=== PATIENT | female | born 1935 | race Caucasian/White ===

== ENCOUNTER 2017-03-11 20:11 | Inpatient (IN) | payer OTHER, MEDICARE ==
[~2017-03-11] VITALS: Ht 165.1 cm; Wt 84.8 kg
[~2017-03-11 20:11] MED LIST: CARV6.25 PO; DIVA250T4 PO; DOCU100C68 PO; FERR325T32 PO; FURO-145 PO; LACT10SO69 PO; METF500T PO; OLAN2.5T3 PO; OMEP20CA4 PO; TRAZ-144 PO
--- NOTE | 2017-03-11 20:30 | NUR ---
PT BIB PA, FROM [facility] FOR WEAKNESS AND ABLABS/UTI, ALERT, FOLOWS COMMANDS, RESPIRATION EVEN, UNLABORED, NO SOB, NO CHEST PAIN, ABLE TO MOVE EXTREMETIES, NNVD, NAD, PT IS NOT DIAPHORETIC, PT PLACED ON MONITOR, WAITING FOR MD SARAN
--- NOTE | 2017-03-11 20:40 | NUR ---
DR WALSH AT THE BEDSIDE FOR EVAL
--- NOTE | 2017-03-11 20:45 | NUR ---
PT TO CT.
--- NOTE | 2017-03-11 20:45 | NUR ---
XRAY AT BEDSIDE
--- NOTE | 2017-03-11 20:59 | NUR ---
PT RETURNED FROM CT
[2017-03-11 21:11] LABS: BASOPHILS # (AUTO) 0.1 /CMM (0.0-0.2); BASOPHILS % (AUTO) 1.4 % (0.0-2.0); EOSINOPHILS # (AUTO) 0.2 /CMM (0.0-0.7); HEMATOCRIT 35 % (33-45); HEMOGLOBIN 11.8 g/dL (11.5-14.8); LYMPHOCYTES # (AUTO) 1.6 /CMM (0.8-4.8); LYMPHOCYTES % (AUTO) 20.8 % (20.0-44.0); MEAN CORPUSCULAR HEMOGLOBIN 33 PG (26.0-33.0); MEAN CORPUSCULAR HGB CONC 34 g/dl (31.0-36.0); MEAN CORPUSCULAR VOLUME 99 fL (82-100); MONOCYTES # (AUTO) 0.7 /CMM (0.1-1.30); MONOCYTES % (AUTO) 9.2 % (2.0-12.0); NEUTROPHILS % (AUTO) 66.6 % (43.0-81.0); PLATELET COUNT (AUTO) 169 /CMM (150-450); RDW COEFFICIENT OF VARIATION 12.2 (11.5-15.0); RED BLOOD CELL COUNT(AUTO) 3.53 MIL/uL (4.0-5.2); WHITE BLOOD COUNT (AUTO) 7.6 K/uL (4.3-11.0)
[2017-03-11 21:29] LABS: CALCIUM, SERUM 8.6 mg/dL (8.5-10.1); CARBON DIOXIDE 27 mmol/L (21-32); CHLORIDE 95 mmol/L (98-107); CREATININE 0.8 mg/dL (0.6-1.3); GLUCOSE 143 mg/dL (74-106); POTASSIUM 3.6 mmol/L (3.5-5.1); SODIUM SERUM 128 mmol/L (136-145); UREA NITROGEN, BLOOD 7 mg/dL (7-18)
[2017-03-11 21:30] LABS: PROTHROMBIN TIME 85.9 SECS (9.5-12.7)
--- NOTE | 2017-03-11 21:34 | NUR ---
Straight catheter performed aseptically for urine collection, drained about 900cc orange urine, collected and sent to lab.
[2017-03-11 21:35] LABS: ALANINE AMINOTRANSFERASE 29 U/L (12-78); ALBUMIN 3.1 g/dL (3.4-5.0); ALKALINE PHOSPHATASE 222 U/L (46-116); ASPARTATE AMINOTRANSFERASE 26 U/L (15-37); BILIRUBIN,DIRECT 0.2 mg/dL (0.0-0.2); BILIRUBIN,TOTAL 0.6 mg/dL (0.2-1.0); TOTAL PROTEIN, SERUM 7.1 g/dL (6.4-8.2)
[2017-03-11 21:37] LABS: INR 7.43 (0.87-1.13); TROPONIN I < 0.017 ng/mL (0.00-0.056)
[2017-03-11 21:40] LABS: APPEARANCE,URINE Clear (CLEAR); BILIRUBIN,URINE Negative (NEGATIVE); BLOOD, URINE Negative Ery/uL (NEGATIVE); COLOR,URINE Yellow (YELLOW); KETONES,URINE Negative (NEGATIVE); LEUKOCYTE ESTERASE ,URINE Negative (NEGATIVE); NITRITE, URINE Negative (NEGATIVE); PH,URINE 5.5 (5.0-8.0); PROTEIN,URINE Negative (NEGATIVE); UGLUCOSE Negative (NEGATIVE); UROBILINOGEN,URINE 0.2 EU/dL (0.2)
--- NOTE | 2017-03-11 21:47 | NUR ---
DR. WALSH SPOKE TO DR. SKY REGARDING POC/ ADMISSION
[2017-03-11] MEDS ORDERED: PHYTONADIONE 5 MG TABLET PO ONE (22:00)
[2017-03-11] MEDS ORDERED: PHYTONADIONE 5 MG TABLET ONE (22:19)
[2017-03-11] MEDS ORDERED: Z GUARD REMEDY 2 OZ OINT TP PRN (22:30)
[2017-03-11] MEDS ORDERED: CARVEDILOL 6.25 MG TABLET PO SCH (22:30)
[2017-03-11] MEDS ORDERED: ONDANSETRON HCL/PF 4 MG/2 ML VIAL IVP PRN (22:30)
[2017-03-11] MEDS ORDERED: HYDROCODONE/APAP 5/325MG 1 EACH TABLET PO PRN (22:30)
[2017-03-11] MEDS ORDERED: OMEPRAZOLE 20 MG PO SCH (22:30)
[2017-03-11] MEDS ORDERED: MAGNESIUM HYDROXIDE 30 ML UDC PO PRN (22:30)
[2017-03-11] MEDS ORDERED: ZOLPIDEM TARTRATE 5 MG TABLET PO PRN (22:30)
[2017-03-11] MEDS ORDERED: ACETAMINOPHEN 325 MG TABLET PO PRN (22:30)
[2017-03-11] MEDS ORDERED: MAG HYDROX/AL HYDROX/SIMETH 30 ML UDC PO PRN (22:30)
--- NOTE | 2017-03-11 22:49 | NUR ---
REPORT GIVEN TO LOYDA FOR TELE BED 313
[2017-03-11 23:05] VITALS: BP 114/60
[2017-03-11] MEDS ORDERED: CARVEDILOL 6.25 MG TABLET ONE (23:08)
[2017-03-11] MEDS ORDERED: DIVALPROEX SODIUM 250 MG TABLET.DR PO ONE (23:09)
[2017-03-11 23:10] LABS: OSMOLALITY,SERUM 264 mOS/kg (278-305); OSMOLALITY,URINE 335 mOS/kg (340-1090)
[2017-03-11] MEDS: DIVALPROEX SODIUM 250 MG TABLET.DR PO SCH (23:10)
--- NOTE | 2017-03-11 23:11 | NUR ---
PT TRANSFERRED PER ACLS PROTOCOL TO 313
--- NOTE | 2017-03-11 23:15 | NUR ---
AUDIO VISUAL ENGINEER NOTE RECEIVED PATIENT FROM ER VIA R[place]AU, PATIENT IS ALERT AND ORIENTEDX3, ON BED REST, BUENO CATH NOTED DUE TO URINARY RETENTION, SHANTANU CLEAR URINE NOTED, EDEMA +2 ON BLE WELL. IV ON RIGHT AC IS PATENT AND INTACT, WILL CONNECT THE FLUID. PATIENT DENIES SOB OR PAIN AT THIS TIME. PT HAS GENERALIZED BRUISES AND RASH ON GROIN, PERINEAL AREA AND BUTTOCKS, PICTURES TAKEN AND PUT THEM IN A CHART. TELE SR 64. SRX2, BED IN LOW POSITION, CALL LIGHT WITHIN REACH, WILL CONTINUE TO MONITOR PATIENT.
[2017-03-11] MEDS: IV NS 0.9% 1,000 ML IV PRN (23:16)
--- NOTE | 2017-03-11 23:50 | NUR ---
SENIOR COMPLIANCE ANALYST NOTE ECHOCARDIOGRAM PERFORMED AT BEDSIDE. EF >55
[2017-03-12 04:00] VITALS: BP 124/60
--- NOTE | 2017-03-12 06:46 | NUR ---
FOREIGN LANGUAGES DEPARTMENT CHAIR NOTE PATIENT IS RESTING IN BED COMFORTABLY, NO ACUTE DISTRESS NOTED SINCE ADMISSION. NO S/S OF RESPIRATORY DISTRESS OR PAIN AT THIS TIME. IV ON RIGHT AC IS PATENT AND INTACT, FLUID IS RUNNING. WILL ENDORSE TO DAY SHIFT NURSE FOR CADEN. Addendum: 03/12/17 at 0654 by MARY DE OLIVEIRA RN TELE MONITOR SR WITH PVC 62.
[2017-03-12 07:16] LABS: EOSINOPHILS # (AUTO) 0.2 /CMM (0.0-0.7); EOSINOPHILS % (AUTO) 3.2 % (0.0-6.0); HEMATOCRIT 32 % (33-45); HEMOGLOBIN 11.1 g/dL (11.5-14.8); LYMPHOCYTES # (AUTO) 1.5 /CMM (0.8-4.8); MEAN CORPUSCULAR HEMOGLOBIN 34 PG (26.0-33.0); MEAN CORPUSCULAR HGB CONC 35 g/dl (31.0-36.0); MEAN CORPUSCULAR VOLUME 99 fL (82-100); MONOCYTES # (AUTO) 0.5 /CMM (0.1-1.30); MONOCYTES % (AUTO) 9.8 % (2.0-12.0); NEUTROPHILS # (AUTO) 3.3 /CMM (1.8-8.9); PLATELET COUNT (AUTO) 140 /CMM (150-450); RDW COEFFICIENT OF VARIATION 12.8 (11.5-15.0); RED BLOOD CELL COUNT(AUTO) 3.24 MIL/uL (4.0-5.2); WHITE BLOOD COUNT (AUTO) 5.6 K/uL (4.3-11.0)
[2017-03-12 07:35] LABS: CHOLESTEROL 87 mg/dL (<200); HDL CHOLESTEROL 50 mg/dL (40-60); LDL 29 mg/dL (0-99); THYROID STIMULATING HORMONE 1.176 uIU/mL (0.358-3.74); TRIGLYCERIDES 51 mg/dL (30-150)
--- NOTE | 2017-03-12 07:46 | NUR ---
RN NOTES RECEIVED PT. PT IS STABLE AND AWAKE IN BED. A/O X3. NO S/S OF DISTRESS OR SOB. NO C/O PAIN. PT IS ON TELE MONITOR READING SR WITH PVC AT 62BPM. PT HAS A FC, NO CURRENT OUTPUT. IV ACCESS LOCATED ON RIGHT AC 20G RUNNING NS AT 75 ML/HR. WILL CONTINUE TO MONITOR.
[2017-03-12 07:50] LABS: CALCIUM, SERUM 8.1 mg/dL (8.5-10.1); CARBON DIOXIDE 32 mmol/L (21-32); CHLORIDE 97 mmol/L (98-107); CREATININE 0.6 mg/dL (0.6-1.3); GLUCOSE 108 mg/dL (74-106); MAGNESIUM 1.7 mg/dL (1.8-2.4); PHOSPHORUS 3.2 mg/dL (2.5-4.9); POTASSIUM 3.8 mmol/L (3.5-5.1); SODIUM SERUM 133 mmol/L (136-145); UREA NITROGEN, BLOOD 4 mg/dL (7-18)
[2017-03-12 07:51] LABS: PROTHROMBIN TIME 80.9 SECS (9.5-12.7)
[2017-03-12 07:56] LABS: INR 6.7 (0.87-1.13)
[2017-03-12 08:00] VITALS: BP 129/62
--- NOTE | 2017-03-12 08:15 | NUR ---
RN NOTES CALLED BY LAB REGARDING PT'S INR OF 6.7. INFORMED IDALIA MCKAY NP OF PT'S INR LEVEL.
[2017-03-12] MEDS: METFORMIN 500 MG TABLET PO SCH ×2 (08:31→17:36)
[2017-03-12] MEDS: PANTOPRAZOLE 40 MG TABLET.DR PO SCH (08:31)
[2017-03-12] MEDS: DOCUSATE SODIUM 100 MG CAPSULE PO SCH ×2 (08:31→17:36)
[2017-03-12] MEDS: DIVALPROEX SODIUM 250 MG TABLET.DR PO SCH ×2 (08:31→17:36)
[2017-03-12] MEDS: FERROUS SULFATE (325 MG) 325 MG/TAB TABLET PO SCH ×3 (08:31→17:36)
[2017-03-12] MEDS: CARVEDILOL 6.25 MG TABLET PO SCH (09:00)
[2017-03-12] MEDS: Magnesium 1GM/D5W 100ML PREMIX 100 ML IV SCH ×2 (10:47→12:33)
[2017-03-12 10:49] LABS: CALCIUM, SERUM 7.6 mg/dL (8.5-10.1); CARBON DIOXIDE 29 mmol/L (21-32); CHLORIDE 100 mmol/L (98-107); CREATININE 0.5 mg/dL (0.6-1.3); GLUCOSE 141 mg/dL (74-106); POTASSIUM 4.3 mmol/L (3.5-5.1); SODIUM SERUM 135 mmol/L (136-145); UREA NITROGEN, BLOOD 5 mg/dL (7-18)
--- NOTE | 2017-03-12 13:23 | NUR ---
RN NOTES AM BLOOD PRESSURE MEDICATION HELD. COREG PO QD, MEDICATION SCHEDULE CHANGED. WAS LAST GIVEN AT 2314 ON 03/11. RESCHEDULED FOR 0900 BEGINNING 03/12. MORNING BP WAS 129/62 HR 65. RETAKEN AT 1230 WITH BP AT 121/52 AND HR 66. MEDICATION HELD.
[2017-03-12 16:15] VITALS: BP 144/86
--- NOTE | 2017-03-12 18:35 | NUR ---
RN CLOSING NOTES PT IS AWAKE AND RESTING IN BED. A/O X 2, NO S/S OF DISTRESS OR SOB. NO C/O PAIN. PT HAS BEEN D/C TELE. FC COLLECTED 1700 ML OF FLUID THROUGHOUT THE DAY. PT RECEIVED 2G IV MAG REPLACEMENT. IV ACCESS LOCATED ON RIGHT AC, 20G RUNNING NS AT 75 ML/HR. PRIMARY NOTIFIED OF ELEVATED BP, INSTRUCTED TO CONTINUE COREG ON REGULAR SCHEDULE. CONTACT PROVIDER IF SBP > 160. SAFETY MEASURES IN PLACE, CALL LIGHT WITHIN REACH. WILL ENDORSE TO OIL PAINTER FOR CADEN.
--- NOTE | 2017-03-12 19:30 | NUR ---
MS RN NOTE RECEIVED PATIENT FROM DAY SHIFT, PATIENT IS ALERT AND ORIENTEDX2, NO S/S OF RESPIRATORY DISTRESS OR PAIN AT THIS TIME. IV ON RIGHT AC IS PATENT AND INTACT, FLUID IS RUNNING. INR LEVEL IS TRENDING DOWN LITTLE BIT, WILL CONTINUE TO MONITOR HER LAB VALUE. SRX2, BED IN LOW POSITION, CALL LIGHT WITHIN REACH, WILL CONTINUE TO MONITOR PATIENT.
[2017-03-12 20:00] VITALS: BP 126/65
[2017-03-12] MEDS: OLANZAPINE 2.5 MG TABLET PO SCH (21:19)
[2017-03-12] MEDS: TRAZODONE 50 MG TABLET PO SCH (21:19)
[2017-03-12] MEDS: IV NS 0.9% 1,000 ML IV PRN (21:23)
--- NOTE | 2017-03-13 06:46 | NUR ---
MS RN NOTE PATIENT IS RESTING IN BED COMFORTABLY, NO ACUTE DISTRESS NOTED THROUGHOUT THE SHIFT. IV ON RIGHT AC IS PATENT AND INTACT, FLUID IS RUNNING. WILL ENDORSE TO DAY SHIFT NURSE FOR CADEN.
--- NOTE | 2017-03-13 07:33 | NUR ---
RN NOTES RECEIVED PT. PT IS STABLE AND SLEEPING IN BED. NO S/S OF DISTRESS OR SOB. PT IS ON ROOM AIR. PT IS ON A FC, WITH 100 ML AT BEGINNING OF SHIFT. IV ACCESS IS LOCATED IN RIGHT AC, 20G RUNNING NS AT 75 ML/HR. WILL FOLLOW UP WITH COAGULATION LAB RESULTS. SAFETY MEASURES IN PLACE, CALL LIGHT WITHIN REACH. WILL CONTINUE TO MONITOR.
[2017-03-13 08:00] VITALS: BP 148/60
[2017-03-13 08:07] LABS: BASOPHILS % (AUTO) 0.2 % (0.0-2.0); EOSINOPHILS # (AUTO) 0.1 /CMM (0.0-0.7); EOSINOPHILS % (AUTO) 0.8 % (0.0-6.0); HEMATOCRIT 32 % (33-45); HEMOGLOBIN 11.1 g/dL (11.5-14.8); LYMPHOCYTES # (AUTO) 1.1 /CMM (0.8-4.8); LYMPHOCYTES % (AUTO) 13.2 % (20.0-44.0); MEAN CORPUSCULAR HEMOGLOBIN 34 PG (26.0-33.0); MEAN CORPUSCULAR HGB CONC 35 g/dl (31.0-36.0); MEAN CORPUSCULAR VOLUME 99 fL (82-100); MONOCYTES # (AUTO) 0.7 /CMM (0.1-1.30); MONOCYTES % (AUTO) 7.8 % (2.0-12.0); NEUTROPHILS # (AUTO) 6.5 /CMM (1.8-8.9); PLATELET COUNT (AUTO) 135 /CMM (150-450); RDW COEFFICIENT OF VARIATION 13.1 (11.5-15.0); RED BLOOD CELL COUNT(AUTO) 3.26 MIL/uL (4.0-5.2); WHITE BLOOD COUNT (AUTO) 8.3 K/uL (4.3-11.0)
[2017-03-13] MEDS: DIVALPROEX SODIUM 250 MG TABLET.DR PO SCH ×2 (08:22→17:45)
[2017-03-13] MEDS: PANTOPRAZOLE 40 MG TABLET.DR PO SCH (08:22)
[2017-03-13] MEDS: FERROUS SULFATE (325 MG) 325 MG/TAB TABLET PO SCH ×3 (08:22→17:45)
[2017-03-13] MEDS: METFORMIN 500 MG TABLET PO SCH ×2 (08:22→17:45)
[2017-03-13] MEDS: DOCUSATE SODIUM 100 MG CAPSULE PO SCH ×2 (08:22→17:45)
[2017-03-13] MEDS: CARVEDILOL 6.25 MG TABLET PO SCH (08:23)
[2017-03-13 08:42] LABS: CARBON DIOXIDE 32 mmol/L (21-32); CHLORIDE 103 mmol/L (98-107); CREATININE 0.5 mg/dL (0.6-1.3); GLUCOSE 116 mg/dL (74-106); MAGNESIUM 1.8 mg/dL (1.8-2.4); POTASSIUM 4.1 mmol/L (3.5-5.1); SODIUM SERUM 140 mmol/L (136-145); UREA NITROGEN, BLOOD 4 mg/dL (7-18)
--- NOTE | 2017-03-13 12:33 | NUR ---
RN NOTES BUENO CATH D/C. ORDERS TO MONITOR PATIENT FOR URINE RETENTION FOR 6 HOURS. BLADDER SCAN BY 1800 IF NO URINE OUTPUT. STRAIGHT CATH FOR VOLUME EXCESS OVER 300 ML. WILL CONTINUE TO MONITOR.
[2017-03-13 13:14] LABS: PROTHROMBIN TIME 49.6 SECS (9.5-12.7)
[2017-03-13 13:16] LABS: INR 4.23 (0.87-1.13)
[2017-03-13 16:00] VITALS: BP 123/58
--- NOTE | 2017-03-13 18:11 | NUR ---
RN NOTES PERFORMED BLADDER SCAN, 200 ML OF URINE VISUALIZED IN SCAN. PER MD ORDER, IF BLADDER SCAN FIND GREATER THAN 300 ML OF URINE, PERFORM STRAIGHT CATH ON PT. WILL ENDORSE TO MAINFRAME SOFTWARE DEVELOPER.
--- NOTE | 2017-03-13 18:29 | NUR ---
RN CLOSING NOTE PT IS AWAKE AND IN BED. NO S/S OF DISTRESS OR PAIN. BUENO D/C AT 1200. BLADDER SCAN PERFORMED PER MD ORDER. VOLUME OF 180-200 FOUND. MD ORDER IS TO PERFORM STRAIGHT CATH IF PT DOES NOT VOID AND HAS A VOLUME EQUAL OR GREATER TO 300 ML DURING BLADDER SCAN. ALL PATIENT NEEDS ANTICIPATED AND MET. SAFETY MEASURES IN PLACE. WILL ENDORSE TO PIANO STRINGER FOR CADEN.
--- NOTE | 2017-03-13 19:40 | NUR ---
MS RN NOTE: PATIENT RESTING IN BED, NO ACUTE DISTRESS NOTED. BREATHING EVEN AND UNLABORED, NO SOB NOTED. IV TO RAC IN PLACE. BED LOCKED AND IN LOWEST POSITION, CALL LIGHT IN REACH, WILL CONTINUE TO MONITOR.
[2017-03-13 20:00] VITALS: BP 127/57
[2017-03-13] MEDS: OLANZAPINE 2.5 MG TABLET PO SCH (22:05)
[2017-03-13] MEDS: TRAZODONE 50 MG TABLET PO SCH (22:05)
--- NOTE | 2017-03-14 02:30 | NUR ---
MS RN NOTE: PATIENT SLEEPING IN BED, NO ACUTE DISTRESS NOTED. REPORT GIVEN PT VONNIE FOR CONTINUATION OF CARE.
--- NOTE | 2017-03-14 02:30 | NUR ---
MS RN NOTES RECEIVED REPORT FROM MALKA JAY,PATIENT SOUND ASLEEP AT THIS TIME.WILL CONTINUE TO MONITOR STATUS.
--- NOTE | 2017-03-14 05:45 | NUR ---
MS RN NOTES REPORTED BY AMOL ZUNIGA,PATIENT NO PEE SINCE THE BEGINNING OF THE SHIFT.PATIENT BLADDER SLIGHTLY DISTENDED.BLADDER SCAN SHOWS 754 VOLUME OF URINE IN THE BLADDER. BUENO CATH RE INSERTED AND TAKEN OUT 700ML RIGHT AWAY,AND STILL DRAINING.WILL CONTINUE TO MONITOR OUTPUT.
--- NOTE | 2017-03-14 06:50 | NUR ---
MS RN NOTES EMPTIED BUENO 750ML
--- NOTE | 2017-03-14 06:50 | NUR ---
MS RN NOTES SLEPT WITH INTERVAL,NO PAIN DISCOMFORTS NOTED.REPOSITION PER PROTOCOL,CALL LIGHT IN REACH,NEEDS ATTENDED.WILL ENDORSE TO DAY NURSE FOR CADEN.
--- NOTE | 2017-03-14 07:28 | NUR ---
RN NOTES RECEIVED PT. PT IS STABLE AND SLEEPING IN BED. NO S/S OF DISTRESS OR SOB. PER REPORT, PT RETAINING URINE WITH NO VOIDS THROUGHOUT THE NIGHT. BLADDER SCAN PERFORMED SHOWING URINE RETENTION IN EXCESS OF 700 ML. FC REINSERTED WITH OUTPUT OF 750 ML. IV ACCESS LOCATED ON RIGHT AC 20G, RUNNING NS AT 75 ML/HR. SAFETY MEASURES IN PLACE, WILL CONTINUE TO MONITOR.
[2017-03-14 07:38] LABS: BASOPHILS % (AUTO) 0.3 % (0.0-2.0); EOSINOPHILS # (AUTO) 0.1 /CMM (0.0-0.7); EOSINOPHILS % (AUTO) 2.1 % (0.0-6.0); HEMATOCRIT 33 % (33-45); HEMOGLOBIN 11.2 g/dL (11.5-14.8); LYMPHOCYTES # (AUTO) 1.2 /CMM (0.8-4.8); LYMPHOCYTES % (AUTO) 22.8 % (20.0-44.0); MEAN CORPUSCULAR HEMOGLOBIN 34 PG (26.0-33.0); MEAN CORPUSCULAR HGB CONC 34 g/dl (31.0-36.0); MEAN CORPUSCULAR VOLUME 99 fL (82-100); MONOCYTES # (AUTO) 0.5 /CMM (0.1-1.30); MONOCYTES % (AUTO) 9.3 % (2.0-12.0); NEUTROPHILS # (AUTO) 3.5 /CMM (1.8-8.9); NEUTROPHILS % (AUTO) 65.5 % (43.0-81.0); PLATELET COUNT (AUTO) 131 /CMM (150-450); RDW COEFFICIENT OF VARIATION 12.9 (11.5-15.0); RED BLOOD CELL COUNT(AUTO) 3.32 MIL/uL (4.0-5.2); WHITE BLOOD COUNT (AUTO) 5.3 K/uL (4.3-11.0)
[2017-03-14 08:00] VITALS: BP 131/59
[2017-03-14] MEDS: DIVALPROEX SODIUM 250 MG TABLET.DR PO SCH (08:03)
[2017-03-14] MEDS: FERROUS SULFATE (325 MG) 325 MG/TAB TABLET PO SCH ×2 (08:03→13:46)
[2017-03-14] MEDS: PANTOPRAZOLE 40 MG TABLET.DR PO SCH (08:03)
[2017-03-14] MEDS: METFORMIN 500 MG TABLET PO SCH (08:03)
[2017-03-14] MEDS: DOCUSATE SODIUM 100 MG CAPSULE PO SCH (08:03)
[2017-03-14 08:05] LABS: PROTHROMBIN TIME 63.7 SECS (9.5-12.7)
[2017-03-14 08:08] LABS: INR 5.35 (0.87-1.13)
[2017-03-14] MEDS: CARVEDILOL 6.25 MG TABLET PO SCH (08:08)
[2017-03-14 08:13] LABS: CALCIUM, SERUM 7.9 mg/dL (8.5-10.1); CARBON DIOXIDE 33 mmol/L (21-32); CHLORIDE 104 mmol/L (98-107); CREATININE 0.5 mg/dL (0.6-1.3); GLUCOSE 94 mg/dL (74-106); MAGNESIUM 1.9 mg/dL (1.8-2.4); PHOSPHORUS 3.4 mg/dL (2.5-4.9); POTASSIUM 4.1 mmol/L (3.5-5.1); SODIUM SERUM 140 mmol/L (136-145); UREA NITROGEN, BLOOD 6 mg/dL (7-18)
--- NOTE | 2017-03-14 11:44 | NUR ---
RN NOTES PER MD ORDER, FC RENEWED. PT CURRENTLY HAS OUTPUT OF 150 ML.
[2017-03-14 16:00] VITALS: BP 140/69
--- NOTE | 2017-03-14 18:03 | NUR ---
DISCHARGE NOTE PT DISCHARGED TO [facility]. DISCHARGE INSTRUCTIONS AND REPORT GIVEN TO GAMA, NURSE ELECTRONIC TRANSACTION IMPLEMENTER. PT IS STABLE, A/OX1. PT REFUSED PNA VACCINE. INFLUENZA VACCINE NOT GIVEN DUE TO OUT OF SEASON. AMBULANCE supervisor dry cleaning PICKED UP THE PT. IV AND BUENO CATH D/C. NO C/O PAIN, DISCOMFORT, OR EVIDENCE OF SOB OR DISTRESS. VITAL SIGNS CHECKED AND RECORDED. MD AND CHARGE NURSE MADE AWARE.
== END 2017-03-14 18:00 | DRG 468 ==
LOC: ER 20:16 → TELE 22:10 → MED 03-12 09:54
PROVIDERS: ADMIT Internal Medicine; ATTEND Internal Medicine
DX: N13.9 Obstructive and reflux uropathy, unspecified (principal); G93.41 Metabolic encephalopathy; E11.22 Type 2 diabetes mellitus with diabetic chronic kidney disease; I50.9 Heart failure, unspecified; I13.0 Hypertensive heart and chronic kidney disease with heart failure and stage 1 through stage 4 chronic kidney disease, or unspecified chronic kidney disease; N39.0 Urinary tract infection, site not specified; E44.1 Mild protein-calorie malnutrition; G30.9 Alzheimer's disease, unspecified; F02.80 Dementia in other diseases classified elsewhere, unspecified severity, without behavioral disturbance, psychotic disturbance, mood disturbance, and anxiety; E87.1 Hypo-osmolality and hyponatremia; Z88.0 Allergy status to penicillin; Z88.2 Allergy status to sulfonamides; Z88.8 Allergy status to other drugs, medicaments and biological substances; Z87.440 Personal history of urinary (tract) infections; Z86.73 Personal history of transient ischemic attack (TIA), and cerebral infarction without residual deficits; Z79.899 Other long term (current) drug therapy; Z79.01 Long term (current) use of anticoagulants; Z74.01 Bed confinement status; K21.9 Gastro-esophageal reflux disease without esophagitis; I70.0 Atherosclerosis of aorta; I25.10 Atherosclerotic heart disease of native coronary artery without angina pectoris; F31.9 Bipolar disorder, unspecified; F20.9 Schizophrenia, unspecified; E86.1 Hypovolemia; E78.5 Hyperlipidemia, unspecified; S30.0XXA Contusion of lower back and pelvis, initial encounter; X58.XXXA Exposure to other specified factors, initial encounter; Y92.9 Unspecified place or not applicable; N18.9 Chronic kidney disease, unspecified
CPT/HCPCS: 36415; 70450-TC; 71010-TC; 76770-TC; 80048-TC; 80061-TC; 80076-TC; 81000-TC; 82746; 82962-TC; 83735-TC; 83935-TC; 84100-TC; 84443-TC; 84484-TC; 85025-TC; 85610-TC; 85730-TC; 87081-TC; 87086-TC; 93307-TC; A4606; J3475; J7030; Z7610